=== PATIENT | female | born 1950 | race Caucasian/White ===

== ENCOUNTER → 2016-11-29 | Outpatient (CLI) | payer MEDICARE, OTHER ==
[~2016-11-29] MED LIST: PROTONIX40 MG PO
== END ==
LOC: MAMO 15:28
DX: Z12.31 Encounter for screening mammogram for malignant neoplasm of breast (principal)
CPT/HCPCS: G0202

== ENCOUNTER 2020-12-11 11:11 | Observation (INO) | payer MEDICARE, OTHER ==
[~2020-12-11] VITALS: Ht 157.5 cm; Wt 68.0 kg
[~2020-12-11 11:11] MED LIST changes: +ASPIR 8181 MG PO; +ASPIR-LOW81 MG PO; +FLAX OIL1000 MG PO; +FLAX SEED OIL1000 MG PO; +MULTI-VITAMIN1 EACH PO; +MULTIVITAMINS1 EAC1 PO; +OMNICEF 300 MG300 MG PO; +VASOTEC20 MG PO
[2020-12-11 11:55] LABS: HEMOGLOBIN 13.5 gm/dl (12.3-15.3); RED BLOOD COUNT 4.52 M/UL (4.00-5.10); WHITE BLOOD COUNT 10.1 K/UL (4.5-11.0)
[2020-12-11 12:32] LABS: BUN/CREATININE RATIO 17 (0-10)
[2020-12-12 02:29] LABS: HEMOGLOBIN 12.3 gm/dl (12.3-15.3); RED BLOOD COUNT 4.12 M/UL (4.00-5.10); WHITE BLOOD COUNT 8.3 K/UL (4.5-11.0)
[2020-12-12 02:56] LABS: BUN/CREATININE RATIO 16 (0-10)
[2020-12-12 08:25] LABS: BUN/CREATININE RATIO 17 (0-10)
--- NOTE | 2020-12-12 10:49 | NUR ---
12/12/20 1040 CO BEING LIGHT HEADED VITAL SIGNS OBTAINED DR SALAZAR NOTIFIED NEW ORDERS NOTED, CESAR CHILDS NOTIFIED
[2020-12-12] MEDS ORDERED: HYDROCODON-ACE1 EAC4 PO (17:05)
[2020-12-12] MEDS ORDERED: LEVOFLOXACIN500 MG PO (17:05)
[2020-12-13] MEDS ORDERED: LOPRESSOR 25 MG25 MG PO (09:54)
[2020-12-13] MEDS ORDERED: ELIQUIS 5 MG TAB5 MG PO (09:54)
== END 2020-12-13 12:25 | disposition home or self-care (01) ==
LOC: ER1 11:11 → MED SURG 4 13:30 → CDU 13:30 → MED SURG 4 13:30 → PROG CARE 13:30 → MED SURG 4 15:39 → PROG CARE 12-12 15:22
PROVIDERS: Emergency Medicine; Family Medicine; Physician Assistant Medical; ADMIT Internal Medicine
DX: I44.1 Atrioventricular block, second degree (principal); I49.5 Sick sinus syndrome; I48.92 Unspecified atrial flutter; R42 Dizziness and giddiness; I10 Essential (primary) hypertension; E78.5 Hyperlipidemia, unspecified; K21.9 Gastro-esophageal reflux disease without esophagitis; Z90.710 Acquired absence of both cervix and uterus; Z88.0 Allergy status to penicillin; Z83.3 Family history of diabetes mellitus; Z82.49 Family history of ischemic heart disease and other diseases of the circulatory system; Z80.0 Family history of malignant neoplasm of digestive organs; Z20.822 Contact with and (suspected) exposure to COVID-19; Z79.82 Long term (current) use of aspirin; Z79.899 Other long term (current) drug therapy
CPT/HCPCS: ECHO; 33208; 36415; 71045; 78452; 80048; 80053; 80061; 82550; 82553; 83690; 83735; 83874; 84439; 84443; 84484; 85025; 85027; 93005; 93017; 93306; 96374; 99152; 99153; 99285; A9502; C1785; C1898; G0378; J1200; J1644; J2250; J2270; J2785; J3010; J3370; J7040; J7050; U0002

== ENCOUNTER → 2021-03-06 | Outpatient (CLI) | payer MEDICARE ==
[~2021-03-06] MED LIST changes: +ELIQUIS 5 MG TAB5 MG PO; +HYDROCODON-ACE1 EAC4 PO; +LEVOFLOXACIN500 MG PO; +LOPRESSOR 25 MG25 MG PO
== END ==
LOC: RAD 08:00
DX: R13.10 Dysphagia, unspecified (principal); K21.9 Gastro-esophageal reflux disease without esophagitis; K22.8 Other specified diseases of esophagus
CPT/HCPCS: 74246

== ENCOUNTER → 2021-10-13 | Outpatient (CLI) | payer MEDICARE | LOC: MAMO 10:00 | DX: Z12.31 Encounter for screening mammogram for malignant neoplasm of breast (principal) | CPT/HCPCS: 77063; 77067 ==